=== PATIENT | male | born 1965 | race Caucasian/White ===

== ENCOUNTER 2022-06-20 10:03 | Emergency (ER) | payer BC, SELFPAY ==
[2022-06-20 10:04] VITALS: BP 116/81; PULSE 76; RESP 18; TEMP 36.9; O2SAT 97; BMI 29.9
[2022-06-20 10:12] VITALS: BMI 29.9
--- NOTE | 2022-06-20 10:16 | XR_ITS ---
FINAL REPORT CLINICAL HISTORY: cough FINDINGS: The heart size is normal. The mediastinum is normal. There is no focal infiltrate or edema. There are no pleural effusions. There is no pneumothorax. There is no osseous abnormality. IMPRESSION: No acute cardiopulmonary process Reviewed, Interpreted and Dictated by Mango Mcgill III, MD Transcribed by Romario Medina Authenticated and [facility]
--- NOTE | 2022-06-20 10:27 | PC.NURSE ---
ED MD AT BEDSIDE FOR EVALUATION
[2022-06-20 10:30] VITALS: BP 123/78; PULSE 72; O2SAT 94
[2022-06-20 10:41] LABS: Influenza A, PCR Not Detected (NotDetected); Influenza B, PCR Not Detected (NotDetected)
--- NOTE | 2022-06-20 10:41 | HMH.EDGENADL ---
Discharge Plan Disposition Patient Disposition: Home, Self-Care Condition: Good Activity Restrictions/Add. Instructions Additional Instructions/Restrictions: ADDITIONAL INSTRUCTIONS FOR COVID-19: Rest, drink plenty of fluids. Tylenol or Ibuprofen for fever and/or aches and pains. Monitor your symptoms. IF YOU HAVE AN EMERGENCY WARNING SIGN (INCLUDING TROUBLE BREATHING), SEEK EMERGENCY MEDICAL CARE IMMEDIATELY. COVID-19 Isolation: People with COVID-19 should isolate for 5 days. Then if they are asymptomatic (no symptoms) or their symptoms are resolving (without fever for 24 hours), follow that by 5 days of wearing a mask when around others to minimize the risk of infecting people you encounter. If you test positive for COVID-19 and never develop symptoms, day 0 is the day of your positive viral test (based on the date you were tested) and day 1 is the first full day after your positive test. If you develop symptoms after testing positive, your 5-day isolation period must start over. Day 0 is your first day of symptoms. Day 1 is the first full day after your symptoms developed. What to do: Stay in a separate room from other household members, if possible. Use a separate bathroom, if possible. Avoid contact with other members of the household and pets. Don?t share personal household items, like cups, towels, and utensils. Wear a mask when around other people if able. Clinical Impressions Clinical Impression: COVID-19 virus infection Instructions Patient Instructions: DI for COVID-19 (Suspected or Confirmed ) Discharge ED Provider: Levi Bragg General Adult HPI General Chief complaint: Upper Respiratory Infection Stated complaint: covid symptoms Time Seen by Provider: 06/20/22 10:27 Mode of Arrival: Ambulatory Limitations: No Limitations Description of Symptoms (Recalled from ER Triage Doc. by RN): PT FROM [facility], 3 DAY HX OF FEVER, BODYACHES AND HEADACHE. [employer]. ROOM MATE AT [facility] IS + FOR COVID History of Present Illness HPI narrative: .Brought in by ambulance from [facility], states he has been sick for 2 to 3 days. He has fever, body aches, headache, ears hurt, productive cough. States his roommate is hospitalized here for COVID-19. Patient has been quarantined for COVID precautions. His other roommate also has COVID-19 and patient states that roommate he is not following his quarantine and is running up and down the [place]. Patient has been vaccinated against COVID a year ago but has not had a booster. He has hypertension. He does not have any lung problems. He is a non-smoker. Related Data Allergies Allergy/AdvReac Type Severity Reaction Status Date / Time Penicillins Allergy Intermediate Verified 06/20/22 10:15 [facility] Medical History (Updated 06/20/22 @ 11:14 by Levi Bragg MD) Deviated septum Hypertension Family History (Updated 06/20/22 @ 10:22 by Estephanie Barragan RN) Other No significant family history Social History (Updated 06/20/22 @ 10:24 by Estephanie Barragan RN) Smoking Status: Never smoker alcohol intake: former current occupational status: unemployed Travel in the last 8 weeks: None housing: assisted living facility ROS Obtained: Yes Systems reviewed as appropriate & no additional complaints except as documented Constitutional Constitutional: Reports body ache, Reports fever(s) and Reports headache(s) ENT Ears, Nose, Mouth, and Throat: Reports otalgia and Reports headache(s) Cardiovascular Cardiovascular: Denies chest pain Respiratory Respiratory: Reports cough with sputum production Gastrointestinal Gastrointestingal: Denies diarrhea or vomiting Neurologic Neurologic: Reports headache(s) Physical Exam General General appearance: alert and in no apparent distress Head Head exam: atraumatic and normocephalic Eye Eye exam: Present normal appearance and EOMI ENT ENT exam: Present normal exam, normal oropharynx and other (Ce
[2022-06-20 10:48] LABS: Chloride 106 mmol/L (98-107)
[2022-06-20 10:49] LABS: Basophils # 0.1 K/mm3 (0-0.2); Basophils % 1.9 % (0.1-2.0); Eosinophils % 0.1 % (0.1-12.0); Hematocrit 43.7 % (42.0-52.0); Lymphocytes # 1.4 K/mm3 (0.7-4.5); Lymphocytes % 22.7 % (10-50); Mean Corpuscular HGB Conc 31.9 g/dL (31.8-35.4); Mean Corpuscular Hemoglobin 30.7 pg (27.0-31.2); Mean Corpuscular Volume 96.1 fl (80-94); Mean Platelet Volume 10.6 fl (7.4-10.4); Monocytes # 0.6 K/mm3 (0.1-1.0); Monocytes % 10.6 % (1.7-9.3); Neutrophils # 3.9 K/mm3 (1.8-7.8); Neutrophils % 64.8 % (37.0-80.0); Platelet Count 200 K/mm3 (142-424); Red Blood Count 4.55 M/mm3 (4.60-6.20); Red Cell Distribution Width 13.1 % (11.5-17.5); Sodium 140 mmol/L (136-145)
[2022-06-20 10:51] LABS: Alanine Aminotransferase 57 U/L (12-78); Aspartate Amino Transferase 50 U/L (17-59); Bilirubin,Total 0.6 mg/dl (0.2-1.3); Blood Urea Nitrogen 26 mg/dl (9-20); Creatinine Clearance Estimated 83 mL/min (50-200); Estimated Glomerular Filt Rate 57 ml/min (>60); GFR (African American) 69 ML/MIN (>60)
[2022-06-20 10:52] LABS: Albumin Level 4.2 g/dl (3.5-5.0); Albumin/Globulin Ratio 1.4 (1.1-1.8); Alkaline Phosphatase 99 U/L (38-126); Calcium 8.8 mg/dl (8.4-10.2); Carbon Dioxide 24 mmol/L (22.0-30.0); Globulin 3.1 g/dL (1.3-3.2); Glucose 121 mg/dl (74-100); Total Protein,Serum 7.3 g/dl (6.3-8.2)
[2022-06-20 11:01] VITALS: BP 109/74; PULSE 76; O2SAT 95
[2022-06-20 11:09] LABS: Coronavirus 19, PCR Detected (NotDetected)
--- NOTE | 2022-06-20 11:26 | PC.NURSE ---
[facility] NOTIFIED THAT PT IS READY FOR DISCHARGE.
[2022-06-20 11:47] VITALS: BP 108/70; PULSE 76; RESP 18; TEMP 36.9; O2SAT 95
== END 2022-06-20 11:50 | disposition home or self-care (01) ==
PROVIDERS: Emergency Provider Emergency Medicine; PCP Emergency Medicine
DX: U07.1 COVID-19 (principal); R06.9 Unspecified abnormalities of breathing; M79.10 Myalgia, unspecified site; M51.9 Unspecified thoracic, thoracolumbar and lumbosacral intervertebral disc disorder; Z88.0 Allergy status to penicillin; Z87.891 Personal history of nicotine dependence
CPT/HCPCS: 71045; 80053; 85025; 99283; C9803; U0003; U0005

== ENCOUNTER 2022-07-09 12:46 | Emergency (ER) | payer BC, SELFPAY ==
[2022-07-09] VITALS (14 sets, daily range): BP systolic 85–144; BP diastolic 50–106; PULSE 64–105; RESP 14–23; TEMP 36.7; O2SAT 95–98; BMI 29.9
--- NOTE | 2022-07-09 12:30 | CT_ITS ---
FINAL REPORT TECHNIQUE: Axial images were obtained of the cervical spine by computed tomography. Coronal and sagittal reconstruction process performed. This study was performed with techniques to keep radiation doses as low as reasonably achievable (ALARA). Individualized dose reduction techniques using automated exposure control or adjustment of mA and/or kV according to the patient''s size were employed. CLINICAL HISTORY: trauma, fall hit head, neck pain FINDINGS: Cervical vertebrae show normal height. There is moderate disc space narrowing at C5-C6 with endplate sclerosis and anterior and posterior osteophyte formation. There is moderate bilateral C5-C6 neural foraminal narrowing. The other levels are unremarkable. There is no malalignment. The facets are properly aligned. IMPRESSION: No fracture. Reviewed, Interpreted and Dictated by Geo Mast MD Transcribed by Romario Medina Authenticated and [facility]
--- NOTE | 2022-07-09 12:31 | CT_ITS ---
FINAL REPORT TECHNIQUE: Axial CT images were performed through the head. Coronal reformatted images were submitted. This study was performed with techniques to keep radiation doses as low as reasonably achievable (ALARA). Individualized dose reduction techniques using automated exposure control or adjustment of mA and/or kV according to the patient's size were employed. CLINICAL HISTORY: trauma. fall hit head FINDINGS: The head is asymmetrically positioned in the gantry. The ventricles are normal in size. There is no evidence of hemorrhage. There is no mass or edema identified. There is no abnormal extra-axial fluid seen. There is mild mucoperiosteal thickening in the right maxillary sinus consistent with chronic sinusitis. There is posterior scalp soft tissue swelling eccentric to the left with a tiny amount of subcutaneous air. There is no acute fracture. IMPRESSION: No acute intracranial process. Reviewed, Interpreted and Dictated by Geo Mast MD Transcribed by Romario Medina Authenticated and [facility]
--- NOTE | 2022-07-09 12:32 | HMH.EDFALL ---
Discharge Plan Disposition Patient Disposition: Home, Self-Care Activity Restrictions/Add. Instructions Additional Instructions/Restrictions: Follow-up with your primary care physician within the next few days. Return for dizziness weakness or any other concerns within the next 24 hours Clinical Impressions Clinical Impression: Head injury Discharge ED Provider: Rocael Maria HPI General Chief Complaint: Fall Stated Complaint: fall Time Seen by Provider: 07/09/22 12:32 History of Present Illness HPI Narrative: That [id number] male presents after fall from standing. He was standing felt lightheaded and then fell backwards and hit his head on a metal bed frame. He denies loss of consciousness. He now has headache and neck pain. No chest pain abdominal pain nausea vomiting diarrhea. No confusion. He denies being on a blood thinner. No vision changes or any other neurological concerns. Loss of consciousness: none Related Data Allergies Allergy/AdvReac Type Severity Reaction Status Date / Time Penicillins Allergy Intermediate Verified 06/20/22 10:15 [facility] Medical History (Updated 07/09/22 @ 14:14 by Rocael Maria MD) Deviated septum Hypertension Major depressive disorder Seizures Family History (Updated 06/20/22 @ 10:22 by Estephanie Barragan RN) Other No significant family history Social History (Updated 06/20/22 @ 10:24 by Estephanie Barragan RN) Smoking Status: Unknown if ever smoked alcohol intake: former current occupational status: unemployed Travel in the last 8 weeks: None housing: assisted living facility ROS Obtained: Yes All systems reviewed & no additional complaints except as documented Physical Exam General General appearance: alert and in no apparent distress Head Head exam: other (Contusion small hematoma posterior scalp) Eye Eye exam: Present PERRL and EOMI ENT ENT exam: Present normal exam and normal oropharynx Neck Neck exam: Present normal inspection (Cervical collar in place) Chest Chest inspection: Present symmetric chest wall rise Respiratory Respiratory exam: Present normal lung sounds bilaterally; Absent respiratory distress Cardiovascular Cardiovascular exam: Present regular rate and normal rhythm Abdominal Exam Abdominal exam: Present soft; Absent distention, tenderness, guarding, rebound, Lennon's sign or tenderness at McBurney's Point Rectal Exam Rectal exam: Present deferred Back Exam Back exam: Present normal inspection Neurological Exam Neurological exam: Present alert, oriented X3, CN II-XII intact, motor sensory deficit and other (Sensation intact to light touch) Psychiatric Psychiatric exam: Present normal affect and normal mood Skin Skin exam: Present warm, dry and intact Lymphatic Lymphatic Findings: no adenopathy Medical Decision Making Medical Records Medical records reviewed: Yes I reviewed the patient's medical records. MR Comment: 57-year-old male presents with fall from standing. He is in no acute distress nontoxic-appearing comfortable in the bed. He did have prodromal symptoms of mild dizziness however he is stable now. Has mild hypotension and no evidence of sepsis or dehydration. Giving IV fluids. Obtaining lab work as well and as well as CT head and cervical spine. CT cervical spine and CT head negative patient awake alert without any symptoms at this time. Laceration closed with 2 sutures. Bleeding controlled updated tetanus plan to discharge with return precautions. Laboratory evaluation otherwise unremarkable, feeling better after IV fluids Kam Inquiry Pt receiving controlled substance: No Kam was queried for this patient: No Vital Signs: 07/09/22 12:26 07/09/22 12:30 07/09/22 12:54 Temperature 98.1 F Temperature Source Oral Pulse Rate [Right Radial] 91 H Respiratory Rate 18 Blood Pressure 85/55 L 88/58 L Blood Pressure [Right Arm] 93/59 L Blood Pressure Mean 61 64 Blood Pressure M
--- NOTE | 2022-07-09 12:35 | ECG_ITS ---
APPROVED REPORT Exam: Resting ECG HR:87 bpm ECG Measurements Heart Rate 87 AXES AZ 182 P 69 QRSd 97 QRS 75 QT 360 T 45 QTc 405 Conclusion SINUS RHYTHM NORMAL ECG UNCONFIRMED REPORT Electronically signed by : Cristiano Bass MD 07/09/2022 17:41:27
[2022-07-09 12:43] LABS: Basophils # 0.1 K/mm3 (0-0.2); Basophils % 0.9 % (0.1-2.0); Eosinophils # 0.1 K/mm3 (0.0-0.4); Eosinophils % 0.9 % (0.1-12.0); Hemoglobin 12.5 g/dL (14.1-18.0); Lymphocytes # 2.1 K/mm3 (0.7-4.5); Lymphocytes % 27.8 % (10-50); Mean Corpuscular HGB Conc 33.8 g/dL (31.8-35.4); Mean Corpuscular Hemoglobin 31.3 pg (27.0-31.2); Mean Corpuscular Volume 92.6 fl (80-94); Mean Platelet Volume 11.1 fl (7.4-10.4); Monocytes # 0.4 K/mm3 (0.1-1.0); Monocytes % 4.9 % (1.7-9.3); Neutrophils # 4.9 K/mm3 (1.8-7.8); Neutrophils % 65.5 % (37.0-80.0); Platelet Count 235 K/mm3 (142-424); Red Cell Distribution Width 13.1 % (11.5-17.5); White Blood Count 7.4 K/mm3 (4.8-10.8)
--- NOTE | 2022-07-09 12:45 | PC.NURSE ---
pt to CT via stretcher
[2022-07-09 12:59] LABS: Alanine Aminotransferase 44 U/L (12-78); Albumin Level 3.7 g/dl (3.5-5.0); Albumin/Globulin Ratio 1.5 (1.1-1.8); Alkaline Phosphatase 103 U/L (38-126); Anion Gap 15.5 mEq/L (5-15); Aspartate Amino Transferase 32 U/L (17-59); Bilirubin,Total 0.5 mg/dl (0.2-1.3); Blood Urea Nitrogen 23 mg/dl (9-20); Calcium 8.3 mg/dl (8.4-10.2); Carbon Dioxide 23 mmol/L (22.0-30.0); Chloride 105 mmol/L (98-107); Creatinine Clearance Estimated 72 mL/min (50-200); Estimated Glomerular Filt Rate 48 ml/min (>60); GFR (African American) 58 ML/MIN (>60); Globulin 2.4 g/dL (1.3-3.2); Glucose 119 mg/dl (74-100); Potassium 4.5 mmoL/L (3.5-5.1); Sodium 139 mmol/L (136-145); Total Protein,Serum 6.1 g/dl (6.3-8.2)
[2022-07-09 13:12] LABS: Troponin I < 0.01 ng/ml (0.00-0.034)
== END 2022-07-09 15:45 | disposition home or self-care (01) ==
PROVIDERS: Emergency Provider Emergency Medicine
DX: S01.01XA Laceration without foreign body of scalp, initial encounter (principal); W18.30XA Fall on same level, unspecified, initial encounter; R42 Dizziness and giddiness
CPT/HCPCS: 12001; 70450; 72125; 80053; 84484; 85025; 90471; 90715; 93005; 96374; 99284; J2405

== ENCOUNTER 2023-08-22 01:51 | Emergency (ER) | payer BC, SELFPAY ==
[2023-08-22 01:53] VITALS: BP 146/96; PULSE 112; RESP 18; TEMP 36.7; O2SAT 95; BMI 28.7
[2023-08-22 01:59] VITALS: BP 146/96; PULSE 98; O2SAT 95
--- NOTE | 2023-08-22 01:59 | XR_ITS ---
PROCEDURE INFORMATION: Exam: XR Right Shoulder Exam date and time: 08/22/2023 2:01 AM Age: 58 years old Clinical indication: Pain; Shoulder; Right; Additional info: Shoulder pain TECHNIQUE: Imaging protocol: Radiologic exam of the right shoulder. Views: 2 or more views. COMPARISON: CT CERVICAL SPINE WO CON 07/09/2022 12:43 PM FINDINGS: Bones/joints: Normal. Soft tissues: Normal. IMPRESSION: No acute findings.
--- NOTE | 2023-08-22 01:59 | XR_ITS ---
PROCEDURE INFORMATION: Exam: XR Right Hand Exam date and time: 08/22/2023 1:58 AM Age: 58 years old Clinical indication: Pain; Hand; Right; Additional info: 4/5 mcp pain, trauma TECHNIQUE: Imaging protocol: Radiologic exam of the right hand. Views: 3 or more views. COMPARISON: No relevant prior studies available. FINDINGS: Bones/joints: There is a mild deformity of the 5th metacarpal which may be chronic, no definite cortical fracture is noted. Soft tissues: Normal. IMPRESSION: There is a mild deformity of the 5th metacarpal which may be chronic, no definite cortical fracture is noted. Consider CT for further evaluation if clinical suspicion is high for fracture.
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
[2023-08-22 03:19] VITALS: BP 107/69; PULSE 67; RESP 16; TEMP 36.9; O2SAT 92
--- NOTE | 2023-08-22 03:21 | PC.NURSE ---
Spoke with [facility] facility staff from [facility]. Questioning patient condition and concerns with transport back to facility since staff does not have mean of transport at this time. Informed that this RN would call dispatch and arrange possible transport if available at time of discharge and patient would be sent home with discharge paperwork at that time. Return call number to [facility] at [phone]
[2023-08-22 03:43] VITALS: BP 144/96; PULSE 95; RESP 16; TEMP 36.8; O2SAT 99
== END 2023-08-22 03:45 | disposition home or self-care (01) ==
PROVIDERS: Emergency Provider Emergency Medicine; PCP Family Medicine
DX: S63.91XA Sprain of unspecified part of right wrist and hand, initial encounter (principal); M25.511 Pain in right shoulder; F17.210 Nicotine dependence, cigarettes, uncomplicated; I10 Essential (primary) hypertension; F33.9 Major depressive disorder, recurrent, unspecified; Y04.0XXA Assault by unarmed brawl or fight, initial encounter
CPT/HCPCS: 73030; 73130; 99283

== ENCOUNTER 2023-08-22 05:05 | Emergency (ER) | payer BC, SELFPAY ==
[2023-08-22 05:07] VITALS: BP 157/101; PULSE 96; RESP 18; TEMP 36.7; O2SAT 98; BMI 27.1
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
--- NOTE | 2023-08-22 07:03 | PC.NURSE ---
Pt in bathroom
[2023-08-22 07:33] VITALS: BP 143/109; PULSE 72; RESP 18; O2SAT 96
--- NOTE | 2023-08-22 07:35 | PC.NURSE ---
[facility] called stating they didn't want the pt to come back to their facility. Will contact [facility] and discuss this situation with them.
--- NOTE | 2023-08-22 07:35 | PC.NURSE ---
pt resting in bed. states he is ready to go back to [facility] and go to sleep. asked pt if he would like a blanket and he stated no. asked if he would like his light off in his room and he stated yes. bed in lowest position. call light within reach.
--- NOTE | 2023-08-22 07:40 | PC.NURSE ---
Pt stated, Is there any I can get out of here? I'm going to miss breakfast Pt advised that we are waiting on a phone call back from facility, and we can order him a breakfast tray. Pt agreeable at this time.
--- NOTE | 2023-08-22 07:42 | PC.NURSE ---
Breakfast tray ordered
--- NOTE | 2023-08-22 07:56 | PC.NURSE ---
Pt provided with breakfast tray
--- NOTE | 2023-08-22 07:59 | PC.NURSE ---
speaking with rod at this time. she stated she's going to call [facility] and talk with them and get back with us.
--- NOTE | 2023-08-22 08:15 | PC.NURSE ---
Pt stepped out of room and advised he was ready to go. Pt informed we are still waiting for a phone call back. Pt states, I'm about to take off walking.
--- NOTE | 2023-08-22 08:27 | PC.NURSE ---
Allison [facility] stated he isn't [place] and he is a danger to staff and residents so; he will not be going back to the [facility]. 2 men will be coming to pick him up and take him to the [facility] in [place]. ER aware. tradeshow worker aware.
--- NOTE | 2023-08-22 08:46 | PC.NURSE ---
pt left ER at this time, walked out of ER ambulance bay doors. [employer] had already been called r/t pt getting upset about [facility] staff not wanting him to come back to their facility. [employer] office walking into ER at time of pt exiting ER. Explained to officer that pt states he is walking back to [facility], [facility] staff states they do not want pt to come back to their facility. Someone is supposed to be coming from [facility] to take pt to the [facility] in [place] but they have not gotten here yet and we do not know their ETA. [employer] officer reports he will contact dispatch and attempt to figure out the situation.
[2023-08-22 08:52] VITALS: BP 143/109; PULSE 72; RESP 18; TEMP 36.7; O2SAT 96
== END 2023-08-22 08:46 | disposition home or self-care (01) ==
PROVIDERS: Emergency Provider Emergency Medicine
DX: S00.93XA Contusion of unspecified part of head, initial encounter (principal); F17.210 Nicotine dependence, cigarettes, uncomplicated; I10 Essential (primary) hypertension; F33.9 Major depressive disorder, recurrent, unspecified; Y04.0XXA Assault by unarmed brawl or fight, initial encounter
CPT/HCPCS: 70450; 72125; 73030; 99285